=== PATIENT | male | born 1995 | race Caucasian/White ===

== ENCOUNTER 2018-12-01 20:13 | Emergency (ER) | payer BC, SELFPAY ==
[2018-12-01 20:14] VITALS: BP 128/87; PULSE 97; RESP 16; TEMP 36.7; O2SAT 98; BMI 19.8
--- NOTE | 2018-12-01 21:10 | RAD_ITS ---
STUDY: X-RAY CHEST REASON FOR EXAM: Male, 23 years old. Chest tightness. TECHNIQUE: PA and lateral views of the chest. COMPARISON: None. FINDINGS: The lungs are hyperinflated. Normal size heart. Normal mediastinum and hung. Normal visualized pulmonary arteries. Normal visualized aortic arch and descending thoracic aorta. Normal visualized thoracic spine. Normal visualized ribs, clavicles, and shoulders. There is no demonstrated abnormality of the visualized soft tissue structures of the upper abdomen. RAD/Chest PA and Lateral IMPRESSION: Hyperinflated lungs may reflect underlying COPD. Electronically Signed: Jyoti Abernathy MD at 22:30 EDT Tel , Service support ,
--- NOTE | 2018-12-01 21:10 | ED.VISSUMM ---
- ER Visit Summary Date of Service: 12/01/18 Chief Complaint: Left-sided chest pain History of Present Illness: The patient is a 23 M. Some type of prior heart surgery as a 1-year-old. There is a left lateral chest approach. Patient states for the last week he is just kind of felt weak. Denies any nausea, vomiting or diarrhea. No fever cough. He is never had a DVT or PE. Denies any recent travel, surgery or immobilization. No leg pain or swelling. No hemoptysis. States yesterday can have a dull aching left-sided chest pain. Not associated with exertion. Nothing specifically makes it better or worse. Physical Examination: Appearing young male. Vital signs stable afebrile. Pulse ox 90% on room air no signs of hypoxia. No distress. HEENT exam unremarkable. Neck nontender no lymphadenopathy. Lungs to auscultation bilaterally. Heart regular and rhythm no murmur. Chest wall completely nontender. He has a cold well-healed left lateral chest wall surgical scar. There is no crepitance or subcu air. Abdomen soft nontender. Normal bowel sounds no peritoneal signs. Extremities moves all 4. Calves nontender no edema no cords. Equal symmetrical radial pulses. Back is nontender. Her logically he is awake and alert with no focal motor deficits. Test Results: EKG shows a sinus rhythm rate of 86. With biatrial enlargement. An incomplete right bundle branch block. I suspect this is secondary to his prior cardiac surgery as a small child. There is no acute signs of NH or ischemia. No signs of pericarditis. AP and lateral chest x-ray 2 views no acute abnormality. Normal cardiac silhouette. No pneumothorax. No other acute abnormalities read by myself. Emergency Department Course and Treatment: Young male with atypical chest pain is not reproducible. No risk factors for a DVT or PE. Repeat exam patient is doing well at 2210. Will be discharged home. Follow-up if not improving. Treatment Plan: Motrin for pain. Follow-up if not improving. Disposition: Discharge Impression: Acute chest pain uncertain etiology This note was generated with Lemkoation software. It may contain incorrect words, spelling, and punctuation that were not noted in review of the chart prior to signing ED Disposition - Plan for ED Patient: Referrals: Care Physician,No Primary [Primary Care Provider] -
--- NOTE | 2018-12-01 22:11 | ED.DEP ---
ED Disposition - Plan for ED Patient: Disposition: Home or Assisted Living Instructions: ED Chest Pain Atypical Unkn Cause Referrals: Sha Forbes MD [STAFF PHYSICIAN] - As Needed Additional Instructions: Follow-up with primary care physician if not improving. Motrin for pain.
--- NOTE | 2018-12-01 22:18 | EKG12_ITS ---
Test Reason : CP Blood Pressure : / mmHG Vent. Rate : 086 BPM Atrial Rate : 086 BPM P-R Int : 150 ms QRS Dur : 118 ms QT Int : 342 ms P-R-T Axes : 083 103 035 degrees QTc Int : 409 ms Normal sinus rhythm Biatrial enlargement Rightward axis Incomplete right bundle branch block Abnormal ECG Confirmed by ZAIDA SHORE, SKY ([id number]), editor city APOLLO FLORES ([id number]) on 12/03/2018 11:16:54 AM Referred By: JADEN Confirmed By:SKY CERDA MD
[2018-12-01 22:30] VITALS: BP 116/71; PULSE 63; RESP 16; O2SAT 100
== END 2018-12-01 22:45 | disposition home or self-care (01) ==
PROVIDERS: Emergency Provider Emergency Medicine
DX: R07.89 Other chest pain (principal); I45.10 Unspecified right bundle-branch block
CPT/HCPCS: 71046; 93005; 99282

== ENCOUNTER 2019-06-04 07:06 | Emergency (ER) | payer BC, SELFPAY ==
[2019-06-04 07:08] VITALS: BP 122/92; PULSE 86; RESP 17; TEMP 36.8; O2SAT 100; BMI 19.6
--- NOTE | 2019-06-04 07:21 | EKG12_ITS ---
Test Reason : PALPITATIONS Blood Pressure : / mmHG Vent. Rate : 065 BPM Atrial Rate : 065 BPM P-R Int : 158 ms QRS Dur : 116 ms QT Int : 380 ms P-R-T Axes : 072 068 032 degrees QTc Int : 395 ms Normal sinus rhythm Incomplete right bundle branch block Borderline ECG Confirmed by MINAL NEVILLE ([id number]), film editor APOLLO FLORES ([id number]) on 06/09/2019 8:46:22 AM Referred By: ARLENE Confirmed By:MINAL NEVILLE
--- NOTE | 2019-06-04 07:22 | ED.DCSUM_ITS ---
- ER Visit Summary Date of Service: 06/04/19 Chief Complaint: Palpitations History of Present Illness: The patient is a 23 M no seen past medical history except he did have some type of cardiac surgery at 1 years old. He had no other past medical history. Currently he is on no medications. Patient states he has had palpitations since earlier this morning. Is currently resolved. He had a similar episode like this earlier this year with no diagnosis. He denies any weight loss or hair loss. He denies any recent illness. No nausea, vomiting or diarrhea. Otherwise been feeling well. He does state could this be anxiety. Physical Examination: Well-appearing young male. Vital signs are stable and afebrile. Currently on the monitor is in sinus rhythm. His pulse ox 90% on room air no signs of hypoxia. HEENT exam normal. Neck nontender no lymphadenopathy. No thyromegaly. Lungs clear to auscultation bilaterally. Heart regular rhythm no murmur rate about 95. Abdomen soft and nontender normal bowel sounds no peritoneal signs. Extremities moves all 4. Equal symmetrical radial pulses. No edema. Upper and lower extremities are neurovascularly intact with normal strength and sensation. Neurologically is awake and is alert. He has no focal motor or sensory deficits. Test Results: EKG shows normal sinus rhythm rate of 65 with no acute abnormalities. He does have an incomplete right bundle branch block. Patient's CBC, BMP and TSH were all normal. Test results. Previously he had had a chest x-ray several months ago that was unremarkable. Emergency Department Course and Treatment: Patient has normal exam at this time. Due to it being his second event of this I will do screening labs but my expectation of finding anything is low. He will need to follow-up for an event or Holter monitor. Repeat exam 8:08 was unchanged and normal. Treatment Plan: Follow-up possible outpatient cardiac monitoring. Disposition: Discharge Impression: Acute palpitations uncertain etiology This note was generated with GloNav dictation software. It may contain incorrect words, spelling, and punctuation that were not noted in review of the chart prior to signing ED Disposition - Plan for ED Patient: Disposition: Home or Assisted Living Instructions: Palpitations Referrals: Rizwan Sanchez MD [STAFF PHYSICIAN] - 1-2 Weeks Additional Instructions: Call and follow-up with emergency room physician assistant office and they can set you up for a outpatient parcel post carrier.
--- NOTE | 2019-06-04 07:27 | ED.RN ---
NO OLD EKG
--- NOTE | 2019-06-04 07:28 | DCINST.ED_ITS ---
ED Disposition - Plan for ED Patient: Disposition: Home or Assisted Living Instructions: Palpitations Referrals: Rizwan Sanchez MD [STAFF PHYSICIAN] - 1-2 Weeks Additional Instructions: Call and follow-up with raw juice weigher office and they can set you up for a outpatient monitor technician.
--- NOTE | 2019-06-04 07:28 | ED.DEP ---
ED Disposition - Plan for ED Patient: Disposition: Home or Assisted Living Instructions: Palpitations Referrals: Rizwan Sanchez MD [STAFF PHYSICIAN] - 1-2 Weeks Additional Instructions: Call and follow-up with casting wheel operator helper office and they can set you up for a outpatient biofuels production technician.
[2019-06-04 07:45] LABS: Hematocrit 45.9 % (40-54); Hemoglobin 15.6 g/dL (13.0-16.5); Mean Corpuscular Hgb 28.5 pg (27.0-32.0); Mean Corpuscular Volume 83.8 fL (80-94); Mean Platelet Vol. 8.8 fl (6.2-12.0); Platelet Count 198 K/mm3 (150-450); RBC Distribution Width SD 36.9 fl (35.1-43.9); Red Blood Count 5.48 M/mm3 (4.6-6.2); White Blood Count 3.2 K/mm3 (4.4-11.0)
[2019-06-04 08:05] LABS: Anion Gap 6 (5-15); BUN 15 mg/dL (7-18); BUN/Creat Ratio 17.2 RATIO (10-20); Calcium,Total 9.5 mg/dL (8.5-10.1); Chloride 103 mmol/L (98-107); Creatinine, Serum 0.87 mg/dL (0.70-1.30); EST Glomerular Filtration Rate 115 mL/min (>60); Est Glom Filt Rate - Afr Amer 139 mL/min (>60); Estimated Creatinine Clearance 132.99 ml/min; Glucose 89 mg/dL (74-106); Potassium 3.7 mmol/L (3.5-5.1); Sodium Level 139 mmol/L (136-145)
[2019-06-04 08:15] VITALS: BP 111/77; PULSE 73; RESP 16; O2SAT 98
== END 2019-06-04 08:16 | disposition home or self-care (01) ==
LOC: ED 07:40
PROVIDERS: Emergency Provider Emergency Medicine
DX: R00.2 Palpitations (principal); I45.19 Other right bundle-branch block
CPT/HCPCS: 80048; 84443; 85027; 93005; 99285; A4216

== ENCOUNTER → 2019-07-16 09:45 | Outpatient (CLI) | payer BC, SELFPAY ==
[2019-06-19 10:23] VITALS: BMI 19.3
--- NOTE | 2019-07-16 09:47 | ECHOD_ITS ---
Reason For Study: CHEST PAIN Procedure This was a 2D Doppler, Color Flow transthoracic echocardiogram. Exam performed in department. Left Ventricle Normal LV size. Left ventricular systolic function is normal. The estimated ejection fraction is 60 %. No regional wall motion abnormalities noted. Right Ventricle Normal RV size. Normal systolic function. Atria Normal left atrium. Normal right atrium. Mitral Valve Normal mitral valve. Tricuspid Valve Normal tricuspid valve. Aortic Valve Normal aortic valve. Pulmonic Valve Normal pulmonic valve. Great Vessels Normal aortic root. The pulmonary artery is normal size. Normal inferior vena cava. Pericardium/Pleural No pericardial effusion. MMode/2D Measurements & Calculations LVIDd: 5.1 cm IVSd: 0.72 cm Ao root diam: 3.1 cm LVIDs: 3.6 cm LVPWd: 0.91 cm RVDd: 3.4 cm FS: 30.0 % LAV(MOD-bp): 25.9 ml LVAd ap4: 34.8 cm2 SV(MOD-sp4): 70.1 ml LAV(MOD-bp) Indexed: 13.3 ml/m2 EDV(MOD-sp4): 122.0 ml LAV(MOD-sp2): 23.6 ml EDV(sp4-el): 123.7 ml LAV(MOD-sp4): 27.5 ml LVAs ap4: 20.1 cm2 ESV(MOD-sp4): 51.9 ml ESV(sp4-el): 50.2 ml EF(MOD-sp4): 57.4 % EF(sp4-el): 59.4 % SV(sp4-el): 73.4 ml LA A4 area: 12.7 cm2 LA dimension(2D): 2.7 cm RA A4 area: 14.4 cm2 Time Measurements MV dec time: 0.24 sec Doppler Measurements & Calculations MV E max warren: 94.5 cm/sec Lat Peak E' Warren: 18.1 cm/sec Med Peak E' Warren: 15.8 cm/sec MV A max warren: 55.6 cm/sec E/E' lat: 5.2 E/E' med: 6.0 MV E/A: 1.7 Ao V2 max: 154.0 cm/sec LV V1 max: 137.6 cm/sec PA V2 max: 113.4 cm/sec Ao max P.5 mmHg LV V1 max P.6 mmHg Interpretation Summary Normal LV size. Left ventricular systolic function is normal. The estimated ejection fraction is 60 %. Structurally normal valves. Ordering Physician: Rizwan Sanchez Referring Physician: Rizwan Sanchez Performed By: Kate Mckenna RDCS
== END ==
PROVIDERS: Referring Provider Internal Medicine Cardiovascular Disease; Visit Provider Internal Medicine Cardiovascular Disease
DX: R07.9 Chest pain, unspecified (principal)
CPT/HCPCS: 93270; 93306

== ENCOUNTER → 2019-07-16 09:47 | Outpatient (REF) | payer BC, SELFPAY ==
[2019-06-19 10:23] VITALS: BMI 19.3
== END ==
LOC: CVS 09:47
PROVIDERS: Visit Provider Internal Medicine Cardiovascular Disease
DX: R00.2 Palpitations (principal)
CPT/HCPCS: 93270; 93271